=== PATIENT | male | born 1935 | race Caucasian/White ===

== ENCOUNTER 2017-05-05 19:28 | Inpatient (IN) | payer OTHER, BC ==
[~2017-05-05] VITALS: Ht 190.5 cm; Wt 88.0 kg
[2017-05-05 20:49] LABS: BASOPHIL % 0.2 % (0-2); PLATELET COUNT 212 x10^3mcL (130-400); RED CELL DISTRIBUTION WIDTH 13.9 % (11.5-14.5)
[2017-05-05 20:50] LABS: UA SPECIFIC GRAVITY 1.015 (1.005-1.035); microscopic required? YES; urine erythrocyte 3+ (NEGATIVE)
[2017-05-05 21:02] LABS: CALCIUM 8.2 mg/dL (8.5-10.1); CARBON DIOXIDE 25.3 mmol/L (21-32); CHLORIDE SERUM 103 mmol/L (98-107); CREATININE SERUM 1.5 mg/dL (0.7-1.3); GLUCOSE SERUM 94 mg/dL (74-106); POTASSIUM SERUM 4.1 mmol/L (3.5-5.1); SODIUM SERUM 137 mmol/L (136-145)
[2017-05-05 21:07] LABS: ALKALINE PHOSPHATASE 59 U/L (46-116); ALT/SGPT 29 U/L (16-63); AST/SGOT 17 U/L (15-37); BILIRUBIN TOTAL 1.46 mg/dL (0.20-1.00)
[2017-05-05 21:08] LABS: ALBUMIN 3.3 g/dL (3.4-5.0)
[2017-05-05 22:09] LABS: MAGNESIUM 1.8 mg/dL (1.8-2.4); PHOSPHOROUS 2.9 mg/dL (2.5-4.9)
[2017-05-05] MEDS ORDERED: CALCITRIOL0.25 MCG PO (22:14)
[2017-05-05] MEDS ORDERED: LOVAZA1 G1 PO (22:16)
[2017-05-05] MEDS ORDERED: CRAN-MAX500 MG PO (22:16)
[2017-05-05] MEDS ORDERED: SM ESTRO VITAL PO (22:17)
[2017-05-05] MEDS ORDERED: POTASSIUM CHLO10 MEQ PO (22:17)
[2017-05-05] MEDS ORDERED: TROMBONEX-D CA1 EACH PO (22:18)
[2017-05-05] MEDS ORDERED: SLOW RELEASE I143 MG PO (22:18)
[2017-05-05] MEDS ORDERED: COQ-1030 MG PO (22:19)
[2017-05-05] MEDS ORDERED: GLIMEPIRIDE2 M1 PO (22:20)
[2017-05-05] MEDS ORDERED: PRADAXA150 M1 PO (22:20)
[2017-05-05] MEDS ORDERED: ATENOLOL50 MG PO (22:20)
[2017-05-05] MEDS ORDERED: LISINOPRIL20 MG PO (22:20)
[2017-05-05 22:32] LABS: T3 TOTAL 0.97 ng/mL
[2017-05-05 22:34] LABS: FREE T4 1.32 ng/dL (0.76-1.46); FREE THYROXINE INDEX 3.1 ug/dL (1.4-4.5); T4(THYROXINE) 8.6 ug/dL (4.7-13.3)
[2017-05-05 23:20] VITALS: BP 105/55
[2017-05-06] MEDS ORDERED: TIZANIDINE HCL4 MG PO (03:26)
[2017-05-06 06:23] VITALS: BP 111/56
[2017-05-06 06:31] LABS: BASOPHIL % 0.3 % (0-2); PLATELET COUNT 186 x10^3mcL (130-400); RED CELL DISTRIBUTION WIDTH 14.4 % (11.5-14.5)
[2017-05-06 07:00] LABS: CALCIUM 8.6 mg/dL (8.5-10.1); CARBON DIOXIDE 28.6 mmol/L (21-32); CHLORIDE SERUM 105 mmol/L (98-107); CREATININE SERUM 1.4 mg/dL (0.7-1.3); GLUCOSE SERUM 82 mg/dL (74-106); POTASSIUM SERUM 4.6 mmol/L (3.5-5.1); SODIUM SERUM 139 mmol/L (136-145)
[2017-05-06 08:45] VITALS: BP 126/62
[2017-05-06 13:47] VITALS: BP 114/61
[2017-05-06 18:16] VITALS: BP 117/53
[2017-05-06 21:29] VITALS: BP 112/47
[2017-05-06 22:58] VITALS: BP 96/51
[2017-05-07 05:36] VITALS: BP 113/59
[2017-05-07 07:27] LABS: BASOPHIL % 0.2 % (0-2); PLATELET COUNT 215 x10^3mcL (130-400); RED CELL DISTRIBUTION WIDTH 14.1 % (11.5-14.5)
[2017-05-07 07:39] LABS: CALCIUM 8.8 mg/dL (8.5-10.1); CHLORIDE SERUM 101 mmol/L (98-107); CREATININE SERUM 1.4 mg/dL (0.7-1.3); GLUCOSE SERUM 88 mg/dL (74-106); POTASSIUM SERUM 4.4 mmol/L (3.5-5.1); SODIUM SERUM 138 mmol/L (136-145)
[2017-05-07 09:08] VITALS: BP 112/59
[2017-05-07 09:10] VITALS: BP 119/53
[2017-05-07] MEDS ORDERED: BACTRIM DS1 TAB PO (12:07)
[2017-05-07] MEDS ORDERED: LASIX20 MG PO (12:11)
[2017-05-07 12:41] VITALS: BP 119/53
== END 2017-05-07 13:34 | disposition home or self-care (01) | DRG 177 ==
LOC: ED 19:28 → DU 21:43
PROVIDERS: Emergency Medicine; ADMIT Family Medicine
DX: J69.0 Pneumonitis due to inhalation of food and vomit (principal); N17.0 Acute kidney failure with tubular necrosis; I50.33 Acute on chronic diastolic (congestive) heart failure; N39.0 Urinary tract infection, site not specified; E44.0 Moderate protein-calorie malnutrition; D68.69 Other thrombophilia; K56.7 Ileus, unspecified; I42.0 Dilated cardiomyopathy; I11.0 Hypertensive heart disease with heart failure; E11.9 Type 2 diabetes mellitus without complications; I48.2 Chronic atrial fibrillation; E86.0 Dehydration; G30.9 Alzheimer's disease, unspecified; F02.80 Dementia in other diseases classified elsewhere, unspecified severity, without behavioral disturbance, psychotic disturbance, mood disturbance, and anxiety; N40.0 Benign prostatic hyperplasia without lower urinary tract symptoms; D64.9 Anemia, unspecified; E80.6 Other disorders of bilirubin metabolism; M62.50 Muscle wasting and atrophy, not elsewhere classified, unspecified site; Z95.0 Presence of cardiac pacemaker; Z68.24 Body mass index [BMI] 24.0-24.9, adult; Z79.84 Long term (current) use of oral hypoglycemic drugs
CPT/HCPCS: 82962; 83880; 84439; 97116-GP; 97530-GP; J0696; J1940; J2543; J7030; J7040; J7620; Q0092

== ENCOUNTER 2017-07-13 00:23 | Inpatient (IN) | payer OTHER, BC ==
[~2017-07-13] VITALS: Ht 190.5 cm; Wt 89.3 kg
[~2017-07-13 00:23] MED LIST: ATENOLOL50 MG PO; BACTRIM DS1 TAB PO; CALCITRIOL0.25 MCG PO; COQ-1030 MG PO; CRAN-MAX500 MG PO; GLIMEPIRIDE2 M1 PO; LASIX20 MG PO; LISINOPRIL20 MG PO; LOVAZA1 G1 PO; POTASSIUM CHLO10 MEQ PO; PRADAXA150 M1 PO; SLOW RELEASE I143 MG PO; SM ESTRO VITAL PO; TIZANIDINE HCL4 MG PO; TROMBONEX-D CA1 EACH PO
--- NOTE | 2017-07-13 02:00 | NUR ---
PT TO ER VIA TRIAGE W/ C/O HEMATURIA SINCE LUNCH TIME HE FLUSHES CHRONIC LEAL W/ 40 CC OF NS DAILY AND TODAY IT BEGAN TO BLEED HE WAITED IT DID NOT STOP IT BECAME BRIGHT RED THEN DARKENED SO HE CAME TO ER ON BETI ON MONITOR MD AWARE PT FOR ADMISSION ALL ORDERS COMPLETE MEDS GIVEN CONT TO MONITOR WILL CALL REPORT CONT TO MONITOR
[2017-07-13 02:17] LABS: PLATELET COUNT 241 x10^3mcL (130-400); RED CELL DISTRIBUTION WIDTH 13.8 % (11.5-14.5)
[2017-07-13 02:18] LABS: CALCIUM 8.8 mg/dL (8.5-10.1); CARBON DIOXIDE 29.3 mmol/L (21-32); CHLORIDE SERUM 104 mmol/L (98-107); CREATININE SERUM 1.2 mg/dL (0.7-1.3); GLUCOSE SERUM 85 mg/dL (74-106); SODIUM SERUM 138 mmol/L (136-145)
[2017-07-13 02:22] LABS: ALBUMIN 3.7 g/dL (3.4-5.0); ALKALINE PHOSPHATASE 56 U/L (46-116); ALT/SGPT 22 U/L (16-63); AST/SGOT 20 U/L (15-37); BILIRUBIN TOTAL 1.14 mg/dL (0.20-1.00); TOTAL PROTEIN, SERUM 7.3 g/dL (6.4-8.2)
[2017-07-13 02:36] LABS: MAGNESIUM 2.1 mg/dL (1.8-2.4); PHOSPHOROUS 3.4 mg/dL (2.5-4.9)
[2017-07-13 02:37] LABS: CHOLESTEROL/HDL RATIO 4.5
[2017-07-13 02:39] LABS: microscopic required? YES
[2017-07-13 02:40] LABS: urine erythrocyte 3+ (NEGATIVE)
[2017-07-13 02:48] LABS: FREE T4 1.23 ng/dL (0.76-1.46); FREE THYROXINE INDEX 3.5 ug/dL (1.4-4.5); T4(THYROXINE) 9.8 ug/dL (4.7-13.3)
[2017-07-13 02:52] LABS: T3 TOTAL 1.08 ng/mL
--- NOTE | 2017-07-13 03:27 | NUR ---
REPORT GIVEN TO KEYLA TO ASSUME CARE OF PT ON TELE
[2017-07-13 04:35] VITALS: BP 143/62
--- NOTE | 2017-07-13 05:02 | NUR ---
RECEIVED PT FROM ER VIA EMILY, ACCOMPANIED BY ER NURSE. KEPT COMFORTABLE IN BED. A/O X4. DENIES HEADACHE/DIZZINESS. RESP. EVEN AND UNLABORED. LUNGS SOUNDS CLEAR BILAT. ON ROOM AIR, SAT. 97%. NO DISTRESS NOTED. AFEBRILE AND VITAL SIGNS STABLE. HX OF BPH AND PACEMAKER INSERTION, PLACED ON TELE #15, PACING ON THE MONITOR, DENIES CHEST PAIN OR PRESSURE. WITH SUPRAPUBIC CATH,CONNECTED TO DRAINAGE BAG, TEA COLORED URINE. ABD. SOFT, NON DISTENDED, BS ACTIVE, NO N/V NOTED. STARTED ON IVF, NS AT 100ML/HR, INFUSING VIA RAC, SITE CLEAR. SKIN WARM AND DRY TO TOUCH, INTACT, NO EDEMA NOTED. AMBULATORY. ORIENTED TO ROOM AND ENVIRONMENT. BED IN LOW POSITION. CALL LIGHT WITHIN REACH. WILL CONTINUE TO MONITOR.
[2017-07-13 05:48] VITALS: BP 143/62
--- NOTE | 2017-07-13 06:32 | NUR ---
NO COMPLAINTS NOTED. AFEBRILE AND VITAL SIGNS STABLE. PACED RHYTHM ON THE MONITOR, DENIES CHEST PAIN OR PRESSURE. KEPT COMFORTABLE. SUPRAPUBIC CATH CLAMPED AT THIS TIME, FOR RENAL /BLADDER ULTRASOUND. WILL ENDORSE TO INCOMING NURSE.
--- NOTE | 2017-07-13 07:56 | NUR ---
AAOX4 ABLE TO VERBALIZE NEEDS WITH CLEAR AND COHERENT SPEECH, DENIES DISCOMFORT AT THIS TIME, SUPRAPUBIC CATH IN PLACE, SCANT AMOUNT OF YELLOWISH CRUST NOTED AT INSERTION AREA, LEAL BAG WITH 600ML PINK TINGED URINE, NO CLOTS OR SEDIMENTATION NOTED, DENIES DYSURIA OR PRESSURE, LEAL CATH HAS BEEN CLAMPED SINCE 604 FOR US, ON TELE #15 PACED RATE, DENIES HEART RELATED PAIN OR DISCOMFORT, IV AT [facility], APPLIED SCD'S, REORIENTED TO ROOM AND CALL LIGHT, WILL CONTINUE TO PROVIDE CARE.
[2017-07-13 08:21] VITALS: BP 140/62
--- NOTE | 2017-07-13 08:41 | NUR ---
US TECK REPORTS BLADDER IS "EMPTY" PT'S LEAL HAS BEEN CLAMPED SINCE 0600. DR DARIELA POWERS FOR CONSULT.
--- NOTE | 2017-07-13 09:35 | NUR ---
PT REPORTS CATHETER CHANGED ON 07/07/17, HE IRRIGATED IT "ONCE OR TWICE, WITHOUT ANY SIGNS OF BLEEDING OR DISCOMFORT" CURRENTLY HE DENIES FEELINGS OF URGENCY OR DYSURIA, 800ML OF PINK TINGED URINE REMOVED FROM LEAL BAG, TOTAL OF 200ML DRAINED AFTER REMOVING CLAMP FROM 0600, AT BEDSIDE, CALL LIGHT WITHIN REACH, PT ABLE TO TAKE ALL MEDS WITHOUT GI DISTRESS.
--- NOTE | 2017-07-13 10:42 | NUR ---
ORDER OF PRADAXA ON HOLD PER DR BROWN.
[2017-07-13 12:56] VITALS: BP 145/76
--- NOTE | 2017-07-13 12:56 | NUR ---
BG 62MG/DL, 4OZ OF ORANGE JUICE GIVEN, DR STEPHANIE POWERS, PATIENT DENIES HYPOGLYCEMIC SYMPTOMS, WILL RECHECK IN 20 MINUTES.
[2017-07-13 17:33] VITALS: BP 142/77
--- NOTE | 2017-07-13 18:51 | NUR ---
PATIENT REQUESTING TO SPEAK WITH MD, DR QUOC POWERS. PT RESTING IN BED, AT BEDSIDE, SUPRAPUBIC CATH DRAINING LIGHT PINK-TINGED URINE TO GRAVITY, PT DENIES DYSURIA OR RETENTION, AWAITING FOR DR GOOD'S CONSULT, NO OTHER SIGNIFICANT CHANGES NOTED, CARE ENDORSED TO NIGHT NURSE.
--- NOTE | 2017-07-13 19:33 | NUR ---
URINE IN CATH BAG IS NOW CLEAR YELLOW.
--- NOTE | 2017-07-13 19:35 | NUR ---
PT IS AAOX4. LUNG SOUNDS ARE CTA ON RA. PT DENIES ANY CP. ON TELE 15 PACED ON DEMAND, WITH A HR OF 60. ABD IS SOFT, ROUND, NON-TENDER. THERE IS A SUPRAPUBIC CATH NOTED THAT IS GIVING OUT YELLOW URINE INTO THE LEAL BAG. IV IN THE RAC INFUSING 100 ML/HR NS. BED IN LOWEST POSITION AND CALL LIGHT WITHIN REACH. WILL CONTINUE TO MONITOR.
[2017-07-13 21:50] VITALS: BP 137/73
--- NOTE | 2017-07-14 05:52 | NUR ---
PT IS RESTING COMFORTABLY IN BED. ALL NEEDS HAVE BEEN MET THROUGHOUT THE NIGHT. NO ACUTE DISTRESS NOTED. BED IN LOWEST POSITION AND CALL LIGHT WITHIN REACH. WILL ENDORSE TO MORNING SHIFT
[2017-07-14 06:14] LABS: BASOPHIL % 0.6 % (0-2); PLATELET COUNT 190 x10^3mcL (130-400)
[2017-07-14 06:19] VITALS: BP 129/64
[2017-07-14 06:41] LABS: CALCIUM 8.8 mg/dL (8.5-10.1); CARBON DIOXIDE 29.6 mmol/L (21-32); CHLORIDE SERUM 105 mmol/L (98-107); CREATININE SERUM 1.1 mg/dL (0.7-1.3); SODIUM SERUM 140 mmol/L (136-145)
[2017-07-14 06:42] LABS: RED CELL DISTRIBUTION WIDTH 14.9 % (11.5-14.5)
[2017-07-14 07:23] LABS: GLUCOSE SERUM 56 mg/dL (74-106)
--- NOTE | 2017-07-14 07:36 | NUR ---
LAB REPORTS BG 56MG/DL DRAWN AT 0455, WILLOW WARREN'S REPORT FOR 0600 IS BG 70MG/DL, PT IS CURRENTLY SITTING UP IN BED, DENIES ANY S&S OF HYPOGLYCEMIA, PT NOTED UNDER NO APPARENT DISTRESS, BOILER MECHANIC CARA AND MARCO A ARE AWARE, CALL LIGHT WITHIN REACH, WILL CONTINUE TO PROVIDE CARE.
--- NOTE | 2017-07-14 07:51 | NUR ---
PT GOING DOWNSTAIRS FOR CT VIA WHEELCHAIR. 450ML OF CLEAR YELLOW URINE REMOVED FROM LEAL BAG.
--- NOTE | 2017-07-14 08:37 | NUR ---
PT RETURNED FROM CT SCAN,
[2017-07-14 09:03] VITALS: BP 139/63
--- NOTE | 2017-07-14 09:29 | NUR ---
PT SITTING UP HAVING BREAKFAST, ABLE TO TAKE ALL PO MEDS WITHOUT GI DISTRESS, CALL LIGHT WITHIN REACH, WILL CONTINUE TO PROVIDE CARE.
[2017-07-14 11:55] VITALS: BP 120/55
--- NOTE | 2017-07-14 13:25 | NUR ---
ABLE TO TOLERATE LUNCH WITHOUT GIS DISTRESS, CLEAN YELLOW URINE NOTED IN LEAL BAG, DENIES DYSURIA OR ABD DISCOMFORT, CALL LIGHT WITHIN REACH, WILL CONTINUE TO PROVIDE CARE.
[2017-07-14] MEDS ORDERED: LASIX20 MG PO (13:50)
[2017-07-14] MEDS ORDERED: LEVOFLOXACIN500 M1 PO (13:54)
[2017-07-14] MEDS ORDERED: LAC PO (13:55)
[2017-07-14 14:46] VITALS: BP 120/55
--- NOTE | 2017-07-14 16:44 | NUR ---
PATIENT DISCHARGED HOME, REVIEWED DISCHARGE INSTRUCTIONS WITH PATIENT AND , INCLUDING SCHEDULING FOLLOW UP APPOINTMENT WITH PCP WITHIN 3-5 DAYS FROM DISCHARGE, PT WILL CALL PCP ON 07/15/17 IN THE MORNING TO SCHEDULE APPOINTMENT. IV D/C'D, CATH TIP INTACT, NO BLEEDING OR PHLEBITIS NOTED, APPLIED PRESSURE FOR THREE MINUTES, NO BLEEDING NOTED, COVERED WITH BANDAID, TELE MONITOR REMOVED, PATIENT WILL BE ASSISTED DOWNSTAIRS VIA WHEELCHAIR BY LOG DATA TECHNICIAN AND .
== END 2017-07-14 16:55 | disposition home or self-care (01) | DRG 689 ==
LOC: ED 00:23 → DU 01:29
PROVIDERS: Emergency Medicine; ADMIT Family Medicine
DX: N39.0 Urinary tract infection, site not specified (principal); N17.0 Acute kidney failure with tubular necrosis; I42.0 Dilated cardiomyopathy; N40.1 Benign prostatic hyperplasia with lower urinary tract symptoms; R31.0 Gross hematuria; E11.65 Type 2 diabetes mellitus with hyperglycemia; E11.51 Type 2 diabetes mellitus with diabetic peripheral angiopathy without gangrene; I48.2 Chronic atrial fibrillation; I10 Essential (primary) hypertension; K80.20 Calculus of gallbladder without cholecystitis without obstruction; K64.8 Other hemorrhoids; N13.8 Other obstructive and reflux uropathy; G30.9 Alzheimer's disease, unspecified; F02.80 Dementia in other diseases classified elsewhere, unspecified severity, without behavioral disturbance, psychotic disturbance, mood disturbance, and anxiety; Z68.24 Body mass index [BMI] 24.0-24.9, adult; Z95.0 Presence of cardiac pacemaker; Z85.819 Personal history of malignant neoplasm of unspecified site of lip, oral cavity, and pharynx
CPT/HCPCS: 82962; 83880; 84439; J1956; J3490; J7030; Q0092; Q9967

== ENCOUNTER 2020-06-26 08:23 | Day surgery (SDC) | payer OTHER, BC ==
[2020-06-20 10:45] LABS: BASOPHIL % 0.6 % (0-2); PLATELET COUNT 225 x10^3mcL (130-400); RED CELL DISTRIBUTION WIDTH 13.8 % (11.5-14.5)
[2020-06-20 10:59] LABS: ALBUMIN 4.3 g/dL (3.4-5.0); ALKALINE PHOSPHATASE 65 U/L (46-116); ALT/SGPT 31 U/L (16-63); AST/SGOT 26 U/L (15-37); BILIRUBIN TOTAL 1.42 mg/dL (0.20-1.00); CALCIUM 9.2 mg/dL (8.5-10.1); CARBON DIOXIDE 32.2 mmol/L (21-32); CHLORIDE SERUM 103 mmol/L (98-107); CREATININE SERUM 1.3 mg/dL (0.7-1.3); GLUCOSE SERUM 75 mg/dL (74-106); POTASSIUM SERUM 4.5 mmol/L (3.5-5.1); SODIUM SERUM 138 mmol/L (136-145); TOTAL PROTEIN, SERUM 7.6 g/dL (6.4-8.2)
[~2020-06-26] VITALS: Ht 190.5 cm; Wt 88.5 kg
[~2020-06-26 08:23] MED LIST changes: +LAC PO; +LEVOFLOXACIN500 M1 PO
[2020-06-26 08:52] VITALS: BP 132/69
[2020-06-26 14:10] VITALS: BP 133/68
== END 2020-06-26 14:10 | disposition home or self-care (01) ==
LOC: DS 08:23 → OR 10:30 → DS 14:10
PROVIDERS: ATTEND Surgery
DX: K40.90 Unilateral inguinal hernia, without obstruction or gangrene, not specified as recurrent (principal); I10 Essential (primary) hypertension; E11.9 Type 2 diabetes mellitus without complications; E78.5 Hyperlipidemia, unspecified; M81.0 Age-related osteoporosis without current pathological fracture; Z95.0 Presence of cardiac pacemaker; Z11.59 Encounter for screening for other viral diseases; Z79.899 Other long term (current) drug therapy; Z79.84 Long term (current) use of oral hypoglycemic drugs; Z98.890 Other specified postprocedural states
CPT/HCPCS: C1781; J0690; J3010; J3490; Q0092; U0003-CS